=== PATIENT | female | born 1950 | race Caucasian/White ===

== ENCOUNTER 2023-01-14 18:24 | Observation (INO) | payer MEDICARE, OTHER, SELFPAY ==
--- NOTE | ~2023-01-14 | MR_ITS ---
EXAMINATION: MR brain/brain stem wo con DATE: 01/15/2023 11:35 INDICATION: Speech disturbance. TECHNIQUE: Magnetic resonance imaging (MRI) of the brain and brainstem was performed without intraven ous contrast. COMPARISON: Head CT 01/14/2023 FINDINGS: There is no intracranial hemorrhage, acute infarction, or abnormal intracranial mass lesion . There are scattered areas of nonspecific increased T2-weighted signal intensity in the cerebral whi te matter, which is within normal limits for the patient's age. The ventricles are normal in size. Th ere is mild mucosal thickening in the ethmoid sinuses. The orbits are normal. The mastoid air cells a re normal. IMPRESSION: 1. Normal aging brain. Reviewed, dictated and finalized at location A. IMPRESSION: 1. Normal aging brain.
--- NOTE | ~2023-01-14 | CT_ITS ---
EXAMINATION: CT brain wo con DATE: 01/14/2023 18:47 INDICATION: Aphagia TECHNIQUE: Computed tomography (CT) of the head was performed without intravenous contrast. The mA wa s adjusted according to patient size. Iterative reconstruction technique was employed. Exam dose: 60 5.33 mGy-cm total exam DLP. COMPARISON: None FINDINGS: Prominent cerebral and cerebellar atrophy. There is nonspecific diminished attenuation of the cerebral white matter, likely due to chronic small vessel ischemic changes. There is cerebral atherosclerosis. No intracranial mass lesion or hemorrhage or recent cerebrovascular accident is evident. No subdural or epidural hematoma. Included paranasal sinuses and mastoid air cells are normally developed and aerated. No fracture or bone destruction of the cranial vault. IMPRESSION: Cerebral and cerebellar atrophy Cerebral atherosclerosis No acute intracranial finding Reviewed, dictated and finalized at Location A. Reviewed, dictated and finalized at location A.
--- NOTE | ~2023-01-14 | CT_ITS ---
EXAMINATION: CTA BRAIN/CAROTID DATE: 01/14/2023 20:56 INDICATION: Transient ischemic episode with dysphasia TECHNIQUE: Computed tomographic angiography (CTA) of the head and neck was performed with 100 mL Omni paque-350 intravenous contrast. Multiplanar reconstructions and maximum intensity projection 3D-recon structions of the carotid arteries and of the intracranial arteries were created by the technologist on a separate workstation. Automated exposure control and iterative reconstruction technique were emp loyed.The dose-length product was 1045.92 mGy-cm. COMPARISON: Head CT dated 01/14/2023 FINDINGS: Carotid arteries: Thoracic aorta is normal in caliber with no dissection. There is no evident atherosclerotic plaque wi th 0% stenosis of the right carotid bulb relative to normal distal artery lumen diameter (NASCET crit eria). There is small amount of atherosclerotic plaque with 0% stenosis of the left carotid bulb rela tive to normal distal artery lumen diameter. Likely benign bilateral thyroid nodules, tiny on the lef t and a up to 1.2 cm on the right. Cervical soft tissues are otherwise unremarkable. Intracranial arteries Small amount of nonhemodynamically significant atherosclerotic plaque at the bilateral carotid siphon s. There is no hemodynamically significant stenosis in the vertebral, basilar and internal carotid ar teries. Vertebral arteries are codominant. There are no aneurysms identified. Both A1 and P1 segment s are patent. The A1 segment is smaller in diameter than the left A1 segment with a patent anterior c ommunicating artery. There is also a patent left posterior communicating artery. Cerebral arterial ar borization appears symmetric. No abnormally enhancing brain lesions. IMPRESSION: 1. 0% stenosis of the right and left carotid bulbs relative to normal distal artery lumen diameter (N ASCET criteria). 2. Unremarkable cerebral CT angiogram with no hemodynamically significant stenosis or aneurysm. Reviewed, dictated and finalized at location A. IMPRESSION: 1. 0% stenosis of the right and left carotid bulbs relative to normal distal ar josiane lumen diameter (NASCET criteria). 2. Unremarkable cerebral CT angiogram with no hemodynamically significant steno sis or aneurysm.
--- NOTE | ~2023-01-14 | XR_ITS ---
XR chest 1V DATE: 01/14/2023 18:52 INDICATION: Aphagia TECHNIQUE: PA chest COMPARISON: None FINDINGS: Normal heart size. Aortic arch calcification, mild aortic unfolding. No hilar or mediastina l enlargement. Mild elevation of right diaphragm. No pulmonary infiltrate or consolidation, pleural effusion or pulmonary vascular congestion or pneumo thorax. No suspicious osteolytic or osteoblastic lesions are noted. IMPRESSION: No active cardiopulmonary disease Aortic atherosclerosis Reviewed, dictated and finalized at location A.
[2023-01-14 18:26] VITALS: BP 157/74; PULSE 75; RESP 18; TEMP 36.4; O2SAT 99
--- NOTE | 2023-01-14 18:32 | ECG_ITS ---
Measurements Intervals [place] Rate: 77 P: 35 [place]: 157 QRS: -43 QRSD: 144 T: 7 QT: 399 QTc: 452 Interpretive Statements SINUS RHYTHM MARKED LEFT AXIS DEVIATION [QRS AXIS < -30] RIGHT BUNDLE BRANCH BLOCK [120+ ms QRS DURATION, UPRIGHT V1, 40+ ms S IN I/aVL/V4/V5/V6] LEFT ANTERIOR SUPERIOR HEMIBLOCK ABNORMAL ECG COMPARED TO ECG 08/09/2019 17:07:39 NO SIGNIFICANT CHANGES Electronically Signed On 01-15-2023 7:48:21 CDT by Escobar Gautam M.D.
[2023-01-14 18:43] LABS: Glucose Point of Care 134 mg/dl (65-105)
[2023-01-14 18:56] LABS: Basophils Absolute Auto 0.1 K/mm3 (0.0-0.1); Basophils Percent Auto 0.7 % (0.2-1.2); Eosinophils Absolute Auto 0.1 K/mm3 (0-0.3); Eosinophils Percent Auto 1.4 % (0-4.4); Hematocrit 43.9 % (37.0-47.0); Hemoglobin 14.3 g/dL (12.0-15.0); Immature Granulocyte Absolute 0.02 K/mm3 (0.00-0.031); Immature Granulocyte Percent A 0.3 % (0-0.5); Lymphocytes Absolute Auto 1.75 K/mm3 (0.9-3.2); Lymphocytes Percent Auto 24.9 % (18.3-44.2); Mean Corpuscular HGB Conc 32.6 g/dl (32-36); Mean Corpuscular Hemoglobin 30.2 pg (26-34); Mean Corpuscular Volume 92.8 fl (80-100); Mean Platelet Volume 9.9 fl (7.4-10.4); Monocytes Absolute Auto 0.6 K/mm3 (0.1-0.6); Neutrophils Absolute Auto 4.6 K/mm3 (1.3-6.7); Neutrophils Percent Auto 64.7 % (45.5-73.1); Platelet Count Result 230 k/mm3 (150-375); Red Blood Count 4.73 M/mm3 (4.2-5.4); Red Cell Distribution Width 13.2 % (11.5-14.5)
[2023-01-14 19:07] LABS: Alanine Aminotransferase 60 U/L (6-35); Albumin Level 4.2 g/dL (3.5-5.1); Alkaline Phosphatase 63 U/L (38-126); Anion Gap 10 mmol/L (8-16); Aspartate Amino Transferase 54 U/L (14-36); Bilirubin,Total 0.5 mg/dL (0.2-1.3); Blood Urea Nitrogen 15 mg/dL (7-17); Calcium 9.3 mg/dL (8.4-10.2); Carbon Dioxide 26 mmol/L (22-30); Chloride 104 mmol/L (98-107); Estimated CRCL calculation 46 ml/min; Estimated Glomerular Filt Rate 54; Glucose 145 mg/dL (65-110); Potassium 4.1 mmol/L (3.4-5.0); Sodium 140 mmol/L (137-145)
[2023-01-14 19:11] LABS: Prothrombin Time 13.2 Seconds (11.1-14.7)
[2023-01-14 19:12] LABS: Partial Thromboplastin Time 26.4 SECONDS (22.3-36.8)
[2023-01-14 19:17] LABS: Troponin I < 0.012 ng/mL (0.000-0.034)
--- NOTE | 2023-01-14 20:28 | ED.GENADULT ---
HPI - General Adult General Chief complaint: Neuro Symptoms/Deficit Stated complaint: Asphagia Time Seen by Provider: 01/14/23 19:32 History of Present Illness HPI narrative: This a pleasant 72-year-old female presenting with a chief complaint of dysphagia. Prior to arrival the patient was helping her debilitated get out of bed when she started to have word-finding difficulty. She was unable to form complete sentences. Is also associated with facial flushing. This lasted approximately 5 minutes and that has resolved completely. She has no other symptoms or complaints. She called her physician who recommended she come hospital as they were concerned for TIA. PMFSH Past Medical History Medical History Diabetes High cholesterol Hypertension Surgical History Surgical History H/O: hysterectomy Social History Social History (Updated 01/14/23 @ 20:30 by Melchor Storey MD) Social History: Denies use of drugs alcohol tobacco Exam Narrative: APPEARANCE: No apparent distress. Head: atraumatic. EYES: EOMI, NOSE: Atraumatic NECK: Trachea midline RESPIRATORY: No increased rate of breathing, clear to auscultation CARDIOVASCULAR: RRR, ABDOMINAL: Non-distended MUSCULOSKELETAl: No obvious deformities NEURO: Alert. Cranial nerves 2-12 grossly intact. Sensation light touch, motor function cerebellar function intact for 4 extremities. Gait exam was normal. SKIN:: Warm, dry. Normal color PSYCHIATRIC: Normal affect NIH Stroke Scale/Score (NIHSS) from [email or web address] on 01/14/2023 All calculations should be rechecked by clinician prior to use RESULT SUMMARY: 0 points NIH Stroke Scale INPUTS: 1A: Level of consciousness ?> 0 = Alert; keenly responsive 1B: Ask month and age ?> 0 = Both questions right 1C: 'Blink eyes' & 'squeeze hands' ?> 0 = Performs both tasks 2: Horizontal extraocular movements ?> 0 = Normal 3: Visual mont[place] ?> 0 = No visual loss 4: Facial palsy ?> 0 = Normal symmetry 5A: Left arm motor drift ?> 0 = No drift for 10 seconds 5B: Right arm motor drift ?> 0 = No drift for 10 seconds 6A: Left leg motor drift ?> 0 = No drift for 5 seconds 6B: Right leg motor drift ?> 0 = No drift for 5 seconds 7: Limb Ataxia ?> 0 = No ataxia 8: Sensation ?> 0 = Normal; no sensory loss 9: Language/aphasia ?> 0 = Normal; no aphasia 10: Dysarthria ?> 0 = Normal 11: Extinction/inattention ?> 0 = No abnormality Course Vital Signs Vital signs: Vital Signs Temperature 97.6 F 01/14/23 18:26 Pulse Rate 75 01/14/23 18:26 Respiratory Rate 18 01/14/23 18:26 Blood Pressure 157/74 H 01/14/23 18:26 Pulse Oximetry 99 01/14/23 18:26 Oxygen Delivery Room Air 01/14/23 18:26 Temperature 97.6 F 01/14/23 18:26 Pulse Rate 75 01/14/23 18:26 Respiratory Rate 18 01/14/23 18:26 Blood Pressure 157/74 H 01/14/23 18:26 Pulse Oximetry 99 01/14/23 18:26 Oxygen Delivery Room Air 01/14/23 18:26 Medical Decision Making [facility] Narrative Medical decision making narrative: -Presentation: this 72-year-old female presenting with 5 minutes of dysphagia. -DDX includes but is not limited to: CVA, TIA, carotid stenosis, vertebral artery insufficiency -Co-morbidities complicating care: hypertension, diabetes, hyperlipidemia -Social determinants of health: retired, patient Johann throat cutter of her debilitated -External Chart Review: none -Hx from independent Sources: linda Whitfield at bedside -Discussion of Management/Consultants: Crow-hospitalist, -neurology -Independent interpretation of studies: CT head was negative for acute hemorrhage. CTA Head neck showed some mild calcified plaques left carotid bulb without significant stenosis. no large vessel occlusions but atretic right A1 segment. CBC within normal limits. Metabolic panel was unremarkable. Troponins were neg
[2023-01-14 21:12] LABS: Glucose Point of Care 93 mg/dl (65-105)
--- NOTE | 2023-01-14 21:58 | PM.IMHP ---
H&P: HPI History of Present Illness Date/Time: 01/14/23 21:58 Chief Complaint: Speech disturbance Narrative: This is a 72-year-old female with past medical history significant for hypertension, dyslipidemia, type 2 diabetes mellitus. Patient presents to the emergency room after having episode of speech disturbance where she had word-finding difficulty was a brief episode, denies any vision changes, focal sensorimotor deficit, has a left-sided frontal headache, patient has been in her usual state of health, patient denies any fevers, rigors, chills, cough, sputum production, nausea, vomiting, abdominal pain, shortness of breath. Preliminary workup was significant for a chest x-ray was reported as: FINDINGS: Normal heart size. Aortic arch calcification, mild aortic unfolding. No hilar or mediastinal enlargement. Mild elevation of right diaphragm. No pulmonary infiltrate or consolidation, pleural effusion or pulmonary vascular congestion or pneumothorax. No suspicious osteolytic or osteoblastic lesions are noted.? IMPRESSION: No active cardiopulmonary disease Aortic atherosclerosis? A CT of the head was reported as: FINDINGS: Prominent cerebral and cerebellar atrophy. There is nonspecific diminished attenuation of the cerebral white matter, likely due to chronic small vessel ischemic changes. There is cerebral atherosclerosis. No intracranial mass lesion or hemorrhage or recent cerebrovascular accident is evident. No subdural or epidural hematoma. Included paranasal sinuses and mastoid air cells are normally developed and aerated. No fracture or bone destruction of the cranial vault. IMPRESSION:? Cerebral and cerebellar atrophy Cerebral atherosclerosis No acute intracranial finding A head CTA final reading is in progress Preliminary report no intracranial large vessel occlusion Review of Systems Review of Systems: Speech disturbance, frontal headache Constitutional: Constitutional: Denies chills, Denies fatigue, Denies fever(s), Denies frequent falls, Reports headache(s), Denies lethargy, Denies malaise and Denies weakness Eyes: Eyes: Denies change in vision ENT: Denies dysphagia and Denies odynophagia Cardiovascular: Cardiovascular: Denies chest pain, Denies irregular heart rhythm, Denies lightheadedness, Denies palpitations and Denies dyspnea on exertion Respiratory: Respiratory: Denies chest congestion, Denies cough, Denies pain on inspiration, Denies dyspnea and Denies wheezing Gastrointestinal: Gastrointestinal: Denies abdominal pain, Denies dyspepsia, Denies heartburn, Denies diarrhea, Denies nausea and Denies vomiting Genitourinary: Genitourinary: Denies dysuria Musculoskeletal: Musculoskeletal: Denies back pain, Denies muscle weakness and Reports neck pain Integumentary/Breasts: Skin/Breast: Denies rash Neurologic: Reports Abnormal speech present (Word-finding difficulty), Denies focal weakness and Denies Sensory deficit (Neuro) Psychiatric: Psychiatric: Reports no additional psychiatric complaints and Reports as per HPI Endocrine: Endocrine: Denies cold intolerance, Denies fatigue, Denies flushing, Denies heat intolerance, Denies polyphagia, Denies polydipsia and Denies palpitations Hematologic/Lymphatic: Hematologic/Lymphatic: Reports no additional hematologic/lymphatic complaints and Reports as per HPI Allergic/Immunologic: Allergic/Immunologic: Reports no additional allergic/immunologic complaints and Reports as per HPI PMFSH Past Medical History Medical History Diabetes High cholesterol Hypertension Surgical History Surgical History H/O: hysterectomy Social History Social History (Updated 01/14/23 @ 20:30 by Melchor Storey MD) Social History: Denies use of drugs alcohol tobacco Meds Home Medications and Allergies Home Medications Medication Instructions Recorded Confirmed
[2023-01-14 22:15] VITALS: BP 133/67; PULSE 81; RESP 18; O2SAT 98
--- NOTE | 2023-01-14 22:42 | ADMGEN ---
This patient, Marialuisa Singleton, was admitted to [facility] Room 321-01. Patient/family oriented to hospital policies and general routines including ID bracelet, bed and alarms, visiting hours, pain management, procedures, bathroom and other care routines, personal items, smoking policy, room service/diet, and visiting hours. Information on how to activate the Rapid Response Team has been discussed. Patient/Family are encouraged to report perceived risks to care and to ask questions if they do not understand what they are told or what they should do.
[2023-01-14 23:00] VITALS: BP 150/80; PULSE 82; RESP 16; TEMP 36.1; O2SAT 99; BMI 36.8
--- NOTE | 2023-01-15 | ECHO_ITS ---
Patient Info Name: Marialuisa Singleton Age: 72 years : 1950 Gender: Female Ht: 62 in Wt: 201 lbs BSA: 2.04 m2 HR: 71 bpm BP: 135 / 71 mmHg Heart Rhythm: Sinus Rhythm Technical Quality: Fair Exam Date: 01/15/2023 1:22 PM Exam Location: [facility] Patient Status: Outpatient Admit Date: 01/14/2023 Staff Ordering Physician: Ottoniel Whitehead MD Aerospace Engineer: Jojo Hair RDCS Attending Provider: Isaura Maria MD Exam Type: CA echo doppler w bubble study Study Info Indications - TIA Complete two-dimensional, color flow and Doppler transthoracic echocardiogram is performed with agitated saline. Contrast/Agitated Saline Contrast/Ag. Saline: Agitated Saline Amount: 20.00 ml Administered By: Ca Kamara RDCS Existing IV Access: Yes IV Access Condition: patent with no signs of infiltration Summary 1. Left ventricular chamber dimension is normal. 2. Left ventricular systolic function is normal, estimated at 65-70%. 3. There is mild concentric increased left ventricular wall thickness. 4. The left ventricular diastolic function is grade I diastolic dysfunction. 5. E/e' 10 is mildly elevated. 6. There is mild aortic valve sclerosis. 7. No pulmonary hypertension, estimated pulmonary arterial systolic pressure is 13 mmHg. Left Ventricle E/e' 10 is mildly elevated. Left ventricular chamber dimension is normal. Left ventricular systolic function is normal, estimated at 65-70%. There is mild concentric increased left ventricular wall thickness. The left ventricular diastolic function is grade I diastolic dysfunction. Right Ventricle Right ventricular systolic function is normal and with normal TAPSE 1.7 cm. Right ventricular chamber dimension is normal. Left Atria Left atrial chamber dimension is normal. Right Atria Right atrial chamber dimension is normal. Atrial Septum Agitated saline injection with and without valsalva maneuver opacified right side cardiac chambers without shunt to left side cardiac chambers. Intact interatrial septum visualized by 2D and agitated saline imaging. Aortic Valve The aortic valve is trileaflet. There is mild aortic valve sclerosis. There is no aortic valve stenosis. There is no aortic valve regurgitation. Pulmonic Valve There is no pulmonic regurgitation. Mitral Valve There is no mitral valve stenosis. There is no mitral valve regurgitation. Tricuspid Valve There is no tricuspid valve regurgitation. No pulmonary hypertension, estimated pulmonary arterial systolic pressure is 13 mmHg. Pericardium/Pleural There is no pericardial effusion. Inferior Vena Cava Normal inferior vena cava with >50% collapse upon inspiration consistent with normal right atrial pressure, 5 mmHg. Aorta The aortic root size at the sinus of Valsalva is normal. Left Ventricular Outflow Tract Name Value Normal LVOT 2D LVOT Diameter 2.0 cm LVOT Doppler LVOT Peak Gradient 3 mmHg LVOT Mean Gradient 2 mmHg LVOT VTI 21 cm
[2023-01-15 06:00] VITALS: BP 135/71; PULSE 71; RESP 14; TEMP 35.6; O2SAT 98
[2023-01-15 06:34] LABS: Glucose Point of Care 104 mg/dl (65-105)
[2023-01-15 07:48] LABS: Glucose Point of Care 119 mg/dl (65-105)
[2023-01-15] MEDS: lisinopriL 20 MG TABLET PO (08:25)
[2023-01-15] MEDS: ASPIRIN 81 MG ENTERIC TABLET PO (09:30)
--- NOTE | 2023-01-15 10:10 | WPDNEURCNPN ---
Assessment and Plan Assessment and plan (1) Brain TIA: Code(s): G45.9 - Transient cerebral ischemic attack, unspecified Status: Acute Plan 1. TIA 2 ongoing history of diabetes mellitus 3 Hypercholesteremia 4 hypertension. Patient is already receiving lisinopril 20 mg daily with lovastatin 20 mg at night and aspirin 81 mg daily. Will obtain the surface echocardiogram and continue the aspirin as such at 75 mg of Plavix daily for the for the 4 weeks. Consult date: 01/15/23 HPI: Marialuisa Singleton is a 72 year old female Admitted to the hospital through the emergency room where she presented with a chief complaint of dysphasia. Getting out of bed when she started having word-finding difficulties she was unable to form complete sentences. The whole episode lasted for about 5 minutes and then resolved completely. She does have ongoing history of hypercholesterolemia, hypertension, diabetes mellitus but no history of consumption of alcohol or tobacco. Initial exam in the emergency room was nonfocal with NIH stroke scale was 0 and vital signs were stable except blood pressure 157/74 routine lab studies were unremarkable and she was admitted to the hospital with the diagnosis of TIA. CTA of the brain documented stenosis or ulceration with the regular head CT as mentioned before only with cerebellar atrophy and cerebral atrophy Review of Systems Review of Systems: All systems reviewed & are unremarkable except as noted in HPI and below PMFSH Past Medical History Medical History Diabetes High cholesterol Hypertension Surgical History Surgical History H/O: hysterectomy Social History Social History (Updated 01/14/23 @ 20:30 by Melchor Storey MD) Social History: Denies use of drugs alcohol tobacco Smoking status: Former smoker Tobacco type: cigarettes Second hand tobacco smoke exposure: No Alcohol intake: former Substance use: never Lack of Transportation: No Lack of Food: Never True Current Housing: I Have Housing Concerned About Future Housing: No Difficulty Paying Gas/Electric Bills: No Difficulty Paying for Meds: No Currently Unemployed: No Education: High School Diploma/GED Difficulty w/ Childcare or Family Care: No Spiritual care concerns: Yes Meds Home Medications and Allergies Home Medications Medication Instructions Recorded Confirmed Type benazepril 20 mg tablet 20 mg PO DAILY 01/14/23 01/14/23 History lovastatin 20 mg tablet,extended 20 mg PO HS 01/14/23 01/14/23 History release 24 hr metformin 1,000 mg tablet 1,000 mg PO BID 01/14/23 01/14/23 History Allergies Allergy/AdvReac Type Severity Reaction Status Date / Time sulfamethoxazole Allergy Rash Verified 01/15/23 06:44 [From ] trimethoprim [From ] Allergy Rash Verified 01/15/23 06:44 Vital Signs Vital Signs - 24 hr 01/14/23 18:26 01/14/23 22:15 01/14/23 23:00 Temperature 36.4 C 36.1 C L Pulse Rate 75 81 82 Respiratory Rate 18 18 16 Blood Pressure 157/74 H 133/67 150/80 H Pulse Oximetry 99 98 99 Oxygen Delivery Room Air 01/15/23 06:00 01/15/23 08:00 Temperature 35.6 C L Pulse Rate 71 Respiratory Rate 14 Blood Pressure 135/71 Pulse Oximetry 98 Oxygen Delivery Room Air Exam Narrative: examination today revealed her to be awake alert cooperative in no obvious acute distress, his speech was not dysphasic not dysarthric, head was normocephalic with no bruit, neck was supple with no meningeal signs no cervical bruit no thyromegaly no lymphadenopathy, heart was regular with no murmur, lungs were clear to auscultation with no rhonchi or crepitations, abdomen is soft and nontender, neurologically she was awake alert oriented x3, speech was not dysphasic not dysarthric not dysphonic, pupils were round regular feels the vision were full extraocular
[2023-01-15 11:40] LABS: Glucose Point of Care 145 mg/dl (65-105)
--- NOTE | 2023-01-15 12:00 | PM.DS ---
DS: Admitting Diagnosis Discharge Date January 15, 2023 Admitting Diagnosis TIA DS: Discharge Diagnosis Discharge Diagnosis (1) Brain TIA: Code(s): G45.9 - Transient cerebral ischemic attack, unspecified Status: Acute Assessment and Plan: Place in observation in Medical floor Neurochecks q.4 CT head reviewed CTA pending official report preliminary report with no large intracranial vessel occlusion MRI of the brain in the morning Neurology consult (2) High cholesterol: Code(s): E78.00 - Pure hypercholesterolemia, unspecified Status: Acute Assessment and Plan: Continue statin (3) Diabetes: Code(s): E11.9 - Type 2 diabetes mellitus without complications Status: Acute Assessment and Plan: Controlled with oral agents and diet Insulin sliding scale as needed (4) Hypertension: Code(s): I10 - Essential (primary) hypertension Status: Acute Assessment and Plan: Continue home meds Continue to monitor DS: Summary Hospital Course Hospital Course: Patient was admitted for TIA, workup unrevealing. Aspirin on discharge, follow-up with Neurology Time Spent with Patient Time attestation: Total time spent providing and/or coordinating discharge services: Exam Narrative: Patient is laying in bed Const: General: comfortable, no acute distress, well developed, alert, awake, average body habitus and other (Well appearing appears stated age) Nutritional Appearance: average body habitus Orientation/consciousness: patient oriented x3 HENMT: Head: normal to inspection, normocephalic and atraumatic Ears: hearing grossly normal bilaterally Face/Nose/Sinus: normal facial exam Face and sinus: normal facial exam Eyes: General: appearance normal, both eyes and all related structures Pupils: Equal, round and reactive pupils present EOM: EOMs intact bilaterally Neck: Neck: full ROM, no lymphadenopathy and no JVD Thyroid: thyroid normal Lymphatic: no lymphadenopathy noted Resp: Effort & Inspection: normal respiratory effort and able to speak in complete sentences Auscultation: clear to auscultation bilaterally Cardio: Jugular venous distension: no JVD Rate: regular rate Rhythm: regular rhythm Heart sounds: S1 normal heart sound present and S2 normal heart sound present : General: Yes deferred Skin: Rashes: no rashes Wounds: no wounds Neuro: General: patient oriented x3, CN's II-XI intact bilaterally and Unable to assess gait Cranial nerves: Yes CN's II-XII intact bilaterally and Yes Equal, round and reactive pupils present Cognition (Neuro): normal cognition Speech: normal speech and Abnormal speech present (Word-finding difficulty) Gait exam (Neuro): Unable to assess gait Motor exam (neuro): 5/5 motor strength present throughout Sensory Exam: No Sensory deficit (Neuro) Extrem: General: normal to inspection, full ROM, no joint enlargement and no pedal edema DS: Data Data Completed and Pending Labs on day of discharge: Labs from last 24 hours 01/15/23 01/15/23 01/15/23 11:36 07:41 06:31 WBC RBC Hgb Hct MCV MCH MCHC RDW Plt Count MPV Immature Gran % (Auto) Neut % (Auto) Lymph % (Auto) Woods % (Auto) Eos % (Auto) Baso % (Auto) Lymph # (Auto) [place] # (Auto) Eos # (Auto) Baso # (Auto) Abs Immat Gran (auto) Absolute Neuts (auto) Absolute Nucleated RBC Nucleated RBC % PT INR APTT Sodium Potassium Chloride Carbon Dioxide Anion Gap BUN Creatinine Estim Creat Clear Calc Estimated GFR Glucose POC Capillary Glucose 145 H 119 H 104 Calcium Total Bilirubin AST ALT Alkaline Phosphatase Troponin I Total Protein Albumin 01/14/23 01/14/23 01/14/23 21:46 18:40 18:40 WBC RBC Hgb Hct MCV MCH MCHC RDW Plt Count MPV Immature Gran % (Auto) Neut % (Aut
[2023-01-15 14:00] VITALS: BP 109/65; PULSE 73; RESP 16; TEMP 36.4; O2SAT 98
== END 2023-01-15 16:30 | disposition home or self-care (01) ==
LOC: ANHED 21:55 → ANH3MEDSUR 01-15 10:17
PROVIDERS: Emergency Medicine; Admitting Provider Internal Medicine; Emergency Provider Emergency Medicine; PCP Student in an Organized Health Care Education/Training Program; Visit Provider Chiropractor
DX: G45.9 Transient cerebral ischemic attack, unspecified (principal); E78.00 Pure hypercholesterolemia, unspecified; E11.9 Type 2 diabetes mellitus without complications; I11.9 Hypertensive heart disease without heart failure; R13.10 Dysphagia, unspecified; I45.10 Unspecified right bundle-branch block; I70.0 Atherosclerosis of aorta; I67.2 Cerebral atherosclerosis; R51.9 Headache, unspecified; R94.31 Abnormal electrocardiogram [ECG] [EKG]; R29.700 NIHSS score 0; Z87.891 Personal history of nicotine dependence; Z79.84 Long term (current) use of oral hypoglycemic drugs; Z79.899 Other long term (current) drug therapy
CPT/HCPCS: 36415; 70450; 70496; 70498; 70551; 71045; 80053; 82948; 84484; 85025; 85610; 85730; 93005; 93306; 96375; 99285; A9270; G0378; Q9967

== ENCOUNTER 2025-03-21 11:40 | Emergency (ER) | payer MEDICARE, OTHER, SELFPAY ==
--- NOTE | ~2025-03-21 | XR_ITS ---
[XR ribs LT 2V w CXR 2V ] INDICATION: Left rib pain after fall TECHNIQUE: Frontal projection of the upper left ribs, frontal projection of the lower left ribs, obli que projection of all the left ribs, frontal inspiratory chest x-ray for interpretation. FINDINGS: There are no displaced rib fractures identified. There are no soft tissue abnormality see n. The lungs are clear. IMPRESSION: 1:No acute displaced rib fractures. Reviewed, dictated and finalized at location B.
[2025-03-21 11:52] VITALS: BP 151/71; PULSE 100; RESP 20; TEMP 36.4; O2SAT 98
--- NOTE | 2025-03-21 13:21 | ED_ITS ---
HPI - Fall General Chief Complaint: Fall Stated Complaint: FELL OFF TOILET, L RIB/BACK PAIN Time Seen by Provider: 03/21/25 11:55 Source: patient Mode of arrival: ambulatory Limitations: no limitations History of Present Illness HPI Narrative: Patient is a 74 year female who presents the ED with report of left rib pain. Patient reports she was attempting to use the restroom this morning when she fell off the toilet onto her left side, hitting her left-sided ribs on the tub. She believe she slipped on the rug when she went to sit down. She complains of pain to her left anterior and lateral ribs. Denies difficulty breathing or feeling short of breath. Denies pain with deep breathing. Denies any other injuries. Denies head injury or LOC, dizziness. Related Data Home Medications ?Medication ?Instructions ?Recorded ?Confirmed ?Last Taken ?Type benazepril 20 mg tablet 20 mg PO DAILY 01/14/23 01/14/23 Unknown History lovastatin 20 mg tablet,extended 20 mg PO HS 01/14/23 01/14/23 Unknown History release 24 hr metformin 1,000 mg tablet 1,000 mg PO BID 01/14/23 01/14/23 Unknown History Allergies Allergy/AdvReac Type Severity Reaction Status Date / Time sulfamethoxazole (From Allergy Rash Verified 01/15/23 06:44 ) trimethoprim (From ) Allergy Rash Verified 01/15/23 06:44 Review of Systems Review of Systems: All systems reviewed & are unremarkable except as noted in HPI. All systems reviewed & are unremarkable except as noted in HPI and below PMFSH Past Medical History Medical History High cholesterol Diabetes Hypertension Surgical History Surgical History H/O: hysterectomy Social History Social History Social History: Denies use of drugs alcohol tobacco Smoking status: Former smoker Tobacco type: cigarettes Second hand tobacco smoke exposure: No Alcohol intake: former Substance use: never Lack of Transportation: No Lack of Food: Never True Current Housing: I Have Housing Concerned About Future Housing: No Difficulty Paying Gas/Electric Bills: No Difficulty Paying for Meds: No Currently Unemployed: No Education: High School Diploma/GED Difficulty w/ Childcare or Family Care: No Spiritual care concerns: Yes Exam Narrative: GENERAL: Well appearing, obese with BMI of 36.1, non-toxic, in no acute distress. HEAD: Normocephalic, atraumatic. RESPIRATORY: Airway patent, respirations nonlabored. Clear to auscultation bilaterally, no rales, rhonchi, wheezing. Lung sounds seem equal abel CARDIOVASCULAR: Regular rate and rhythm without murmurs, rubs, or gallops. ABDOMINAL: Soft, no tenderness throughout abdomen, nondistended. Normoactive BS. MUSCULOSKELETAL: Moves all extremities. No gross deformities. Mild TTP over inferior anterolateral rib cage. No palpable bony deformities. SKIN: Warm, dry, normal color. NEURO: A&O X3. Speech clear. Steady gait. No ataxic movements. PSYCHIATRIC: Appropriate mood and affect. Normal interaction. Course Vital Signs Vital signs: Vital Signs Temperature 97.6 F 03/21/25 11:52 Pulse Rate 100 03/21/25 11:52 Respiratory Rate 20 03/21/25 11:52 Blood Pressure 151/71 H 03/21/25 11:52 Pulse Oximetry 98 03/21/25 11:52 Oxygen Delivery Room Air 03/21/25 11:52 Temperature 97.6 F 03/21/25 11:52 Pulse Rate 100 03/21/25 11:52 Respiratory Rate 20 03/21/25 11:52 Blood Pressure 151/71 H 03/21/25 11:52 Pulse Oximetry 98 03/21/25 11:52 Oxygen Delivery Room Air 03/21/25 11:52 MDM - Fall MDM Narrative Medical decision making narrative: Patient presented to ED with left rib pain s/p mechanical fall. Denies any other injuries. Denies shortness of breath, dyspnea with exertion. Oxygen is stable on room air. Vital signs are otherwise stable. Patient in no acute distress. Did not want anything for pain. X-ray of left ribs and chest negative for acute fracture. Will treat for rib contusion. Will educate on incentive spirometer. Will prescribe lidocaine patches. Patient did not want anything stronger for pain. Denies any other areas of pain or injury. Advised she can take Tylenol/ibuprofen as needed for pain. Recommended close follow-up with PCP for further evaluation. Given strict return precautions. She is in agreement with plan. D/C in stable condition. Medical Records Attestation: I reviewed the patient's medical records. Imaging Data Attestation: I personally reviewed and interpreted this imaging study as foll ows: Radiologist's impression: ITS Impressions Ribs w/Chest X-Ray 03/21/25 13:47 IMPRESSION: 1:No acute displaced rib fractures. Discharge Plan Discharge Clinical Impression: Contusion of rib on left side Qualifiers: Encounter type: initial encounter Qualified Code(s): S20.212A - Contusion of left front wall of thorax, initial encounter Patient Disposition: Home Condition: Stable Instructions: Antibiotic Form, Rib Fracture (ED), Rib Contusion (ED) Additional Instructions: Your imaging did not show any evidence of rib fracture. You likely bruised your ribs. Recommend Tylenol and ibuprofen if needed for pain, lidocaine patches to area of pain. Utilize incentive spirometer several times throughout the day to encourage deep breathing. Follow-up with your primary care doctor for further evaluation. Return to the ED if you experience worsening or severe pain, difficulty breathing or shortness of breath, unable to keep down food or drink, recurrent fall or injury, or any other symptoms of concern. Patient Language: Bel[place]ian Prescriptions: New lidocaine 5 % adhesive patch,medicated 1 patch topical DAILY Qty: 15 0RF Rx Instructions: leave on most painful area for up to 12 hrs No Action metformin 1,000 mg Tablet 1,000 mg PO BID benazepril 20 mg Tablet 20 mg PO DAILY lovastatin 20 mg Tablet Extended Release 24 Hr 20 mg PO HS aspirin 81 mg capsule 81 mg PO DAILY Qty: 30 0RF clopidogrel [Plavix] 75 mg Tablet 75 mg PO DAILY 28 Days Qty: 28 0RF Rx Instructions: Take daily x 4 weeks Follow-up/Referrals: Tao,DO Dedrick [Primary Care Provider] - Time of Disposition: 14:06
== END 2025-03-21 14:34 | disposition home or self-care (01) ==
PROVIDERS: Emergency Provider Physician Assistant; PCP Student in an Organized Health Care Education/Training Program
DX: S20.212A Contusion of left front wall of thorax, initial encounter (principal); E11.9 Type 2 diabetes mellitus without complications; I10 Essential (primary) hypertension; Z87.891 Personal history of nicotine dependence; W18.11XA Fall from or off toilet without subsequent striking against object, initial encounter
CPT/HCPCS: 71046; 71100; 99283